=== PATIENT | female | born 1965 | race Caucasian/White ===

== ENCOUNTER 2017-03-07 06:34 | Inpatient (IN) | payer BC ==
[~2017-03-07 06:34] MED LIST: AMBIEN10 M1 PO; ATIVAN0.5 M1 PO; CALCIUM + VITA1 EAC4 PO; CYCLOBENZAPRINE10 M1 PO; HYDROCODON-ACE1 EA15 PO; IMITREX100 M2 PO; MAGNESIUM OXID400 M1 PO; MULTI VITAMIN1 EAC2 PO; OXYCONTIN10 M2 PO; PANTOPRAZOLE SO40 M3 PO; POTASSIUM CHLO20 ME3 PO; SERTRALINE HCL100 M5 PO; ZOFRAN4 M2 PO
--- NOTE | 2017-03-07 18:58 | NUR ---
VIRTUAL CARE NOTE: ASSESSMENT DEFERRED. PT. SLEEPING.
[2017-03-08 04:48] LABS: ANION GAP 12 mmol/L (0-20); BLOOD UREA NITROGEN 11 mg/dl (6-24); CALCIUM 8.8 mg/dl (8.5-10.5); CARBON DIOXIDE-VENOUS 27 mmol/L (22-32); CHLORIDE 107 mmol/l (96-110); CREATININE 0.72 mg/dl (0.50-1.10); GLUCOSE 136 mg/dL (70-110); PHOSPHOROUS 3.4 mg/dl (2.5-4.9); POTASSIUM 4.1 mmol/L (3.7-5.1); SODIUM 142 mmol/L (135-145); eGFR VALUE FOR BLACK >90 mL/Min
[2017-03-08 05:09] LABS: BASO % 0.1 % (0-2); HCT-HEMATOCRIT 26.9 % (34.0-49.0); HGB-HEMOGLOBIN 8.8 gm/dl (12.0-15.5); IMMATURE GRANULOCYTES ABSOLUTE 0.02 tho/cmm (0-0.03); IMMATURE GRANULOCYTES PERCENT 0.2 % (0-0.3); LYMPH % 12.2 % (20-45); LYMPH ABSOLUTE COUNT 1.2 tho/cmm (0.8-4.5); MCH (MEAN CORPUSCULAR HGB) 33.3 pg (28.0-32.0); MCHC MEAN CORPUSCULAR HGB CONC 32.7 % (32.0-36.0); MCV (MEAN CELL VOLUME) 101.9 fl (82.0-96.0); MEAN PLATELET VOLUME 9.3 cmc (9.4-12.4); MONO % 7.4 % (0-12); MONOCYTE ABSOLUTE COUNT 0.8 tho/cmm (0.0-1.2); NEUTROPHIL ABSOLUTE COUNT 8.2 tho/cmm (1.6-8.0); NEUTROPHIL-AUTOMATED 8.2 tho/cmm (1.6-8.0); NEUTROPHILS % 80.1 % (40-80); PLATELET COUNT 201 tho/cmm (150-450); RED BLOOD COUNT 2.64 mil/cmm (4.00-5.20); RED CELL DISTRIBUTION WIDTH 12.9 % (12.4-16.4); WHITE BLOOD COUNT 10.2 tho/cmm (4.0-10.0)
[2017-03-09] MEDS ORDERED: MOTRIN IB200 M1 PO (09:14)
[2017-03-09] MEDS ORDERED: MILK OF MAGNESIA PO (09:18)
[2017-03-09] MEDS ORDERED: BENADRYL25 M3 PO (09:20)
[2017-03-09] MEDS ORDERED: PERCOCET 5-3251 EACH PO (09:22)
--- NOTE | 2017-03-09 10:20 | NUR ---
VIRTUAL CARE NOTE: PT DRESSED READY FOR DISCHARGE TEACHING, AND HER SONS AT BEDSIDE. DISCHARGE INSTRUCTIONS GIVEN TO PT AND AT BEDSIDE. PT AND DENIES QUESTIONS. INFORMED FLOOR NURSE DISCHARGE TEACHING ALL DONE.
== END 2017-03-09 10:30 | DRG 583 ==
LOC: SHSB 06:34 → ORW 09:31 → PACU 12:29 → 5WD 14:25
PROVIDERS: ADMIT Specialist
PROC: 0HRT0JZ Replacement of Right Breast with Synthetic Substitute, Open Approach (ICD-10-PCS; principal; 2017-03-07)
DX: C50.911 Malignant neoplasm of unspecified site of right female breast (principal)
CPT/HCPCS: C1713; C1781; C1789; J0690; J1170; J2250; J2270; J2550; J2765; J2795; J3010; J3370